=== PATIENT | female | born 1990 | race Caucasian/White ===

== ENCOUNTER 2018-09-21 13:47 | Inpatient (IN) | payer OTHER ==
[~2018-09-21] VITALS: Ht 162.6 cm; Wt 150.0 kg
[2018-09-21 14:34] VITALS: Ht 162.6 cm; Wt 150.0 kg
[2018-09-21 14:35] VITALS: BP 106/64; PULSE 83; RESP 20
[2018-09-21] MEDS ORDERED: PREN1TAB13 PO (14:38)
--- NOTE | 2018-09-21 17:20 | HP ---
Date/Time of Note Date/Time of Note DATE: 09/21/18 TIME: 17:19 OB - History Hx of Present Free Text/Dictation Patient is a 28-year-old morbidly obese with BMI of 56.8 2 para 1 at 35 weeks and 2 days of gestation with estimated date of delivery October 24, 2018 She is a gestational diabetic insulin-dependent and currently takes 40 units of NPH at bedtime daily presents for testing for NST and BPP Patient reports positive movement, she denies any uterine contractions, denies vaginal bleeding or leaking fluid She was seen yesterday for NST and BPP (MIGUEL ANGEL of 6.5 noted yesterday) Estimated Due Date: Oct 24, 2018 : 2 Para: 1 Care: Good Care Obstetrical Complications: Gestational Diabetes (GDMA2) Past Family/Social History * Past Medical, Surgical, Family and Obstetric Histories reviewed from chart. OB Admission Exam Vital Signs Vital Signs Vital Signs Date Temp Pulse Resp B/P (MAP) Pulse Ox O2 O2 Flow FiO2 Time Delivery Rate 09/21/18 97.8 83 20 106/64 Room Air 14:35 (78) Physical Exam HEENT: WNL Heart: Rhythm Normal Lungs: Clear, Equal Abdomen: WNL Extremities: Normal Reflexes: Normal Membranes: Intact Heart Rate: 140's Accelerations: Accelerations Present Decelerations: No Decelerations Varibility: Moderate Contractions on Admission: None Last 72 hourBlood Glucose Bedside Glucose - 72 Hours Test 09/21/18 14:46 Bedside Glucose 87 mg/dL (70-220) PROCEDURE: US OB CLINICAL INDICATION: . Evaluate size and dates. Oligohydramnios in the clinic. Gestational diabetes TECHNIQUE: Multiple transabdominal sonographic images of the pelvis and gravid uterus were obtained. The images were reviewed on a PACS workstation. COMPARISON: 09/20/2018. FINDINGS: The study is limited by the patient's body habitus. Cervix: Not visualized Gestation: Single viable intrauterine gestation. Cardiac activity: 131 beats per minute. Presentation: Transverse oblique, head to the maternal right Placenta: Location: Anterior. Appearance: Grade 1-2 No previa or abruption. Amniotic Fluid: MIGUEL ANGEL = 4.86 cm, oligohydramnios Measurements: BPD = 9.13 cm, 37 weeks 0 days HC = 33.73 cm, 38 weeks 5 days AC = 31.91 cm, 35 weeks 6 days FL = 7.00 cm, 35 weeks 6 days Gestational Age: AUA estimated gestational age: 36 weeks 6 days LMP estimated gestational age: 35 weeks 2 days AUA estimated date of delivery: 10/13/2018 The EFW = 2898 g, 76 %ile based on LMP age. Structures: Anatomic survey is not performed RPTAT:FERNANDOJR IMPRESSION: 1. The study is limited by the patient's body habitus. 2. Single living intrauterine gestation of 36 weeks 6 days by ultrasound criteria. Estimated date of delivery of 10/13/2018. 3. Amniotic fluid index of 4.86 cm is consistent with oligohydramnios, decreased from 6.86 cm on the study of 09/20/2018. 4. Estimated weight 2898 g (6 pounds 6 ounces) Misael Alexandre Physician Date Time Electronically viewed and signed by Misael Alexandre Physician on 09/21/2018 17:05 JR/ CC: FARHAD CROFT MD [id number] PROCEDURE: US OB. CLINICAL INDICATION: Oligohydramnios examination in the clinic. Gestational diabetes TECHNIQUE: Pelvic ultrasound performed for biophysical profile. COMPARISON: Complete obstetrical ultrasound 09/21/2018. 09/20/2018 FINDINGS: The study is limited by the patient's body habitus. Single intrauterine gestation present with heart rate at 123 beats per minute. Presentation is transverse oblique, head to the maternal right. Placenta is anterior, grade II. Biophysical profile score is 8/8 (breathing=2, movement=2, tone =2, fluid volume=0). Amniotic fluid volume is below normal limits, with MIGUEL ANGEL = 4.86 cm, findings confirming oligohydramnios. RPTAT:FERNANDOJR IMPRESSION: Biophysical profile score 6/8 due to oligohydramnios, the amniotic fluid index 4.86 cm, previously 6.86 cm on the study of 09/20/2018. Misael Alexandre Physician Date Time Electronically viewed and signed by Misael Alexandre Physician on 09/21/2018 17:08 JR/ CC: FARHAD CROFT MD [id number] OB Assessment/Plan Reason for admission: other (35 weeks and 2 days of gestation with oligohydramnios) Other plan: Admit to antepartum IV fluids Repeat BPP in a.m. Perinatology consult Copies To: CC: ARIE CLEMONS MD ; FARHAD CROFT MD Sep 21, 2018 17:20
[2018-09-21] MEDS ORDERED: LACTATED RINGER'S 1,000 ML IV SCH ×2 (17:46→18:00)
[2018-09-21] MEDS ORDERED: GLUCOSE GEL 15 GRAM TUBE BUCCAL PRN (18:30)
[2018-09-21] MEDS ORDERED: GLUCAGON 1 MG INJ IM PRN (18:30)
[2018-09-21] MEDS ORDERED: GLUCOSE GEL 15 GRAM TUBE PO PRN ×2 (18:30)
[2018-09-21] MEDS ORDERED: DEXTROSE 50% 50 ML SYRINGE IV PRN ×2 (18:30)
[2018-09-21] MEDS ORDERED: ACCU-CHEK XX SCH (19:35)
[2018-09-21] MEDS ORDERED: NPH, HUMAN INSULIN ISOPHANE 3ML VIAL SC SCH (21:00)
--- NOTE | 2018-09-22 14:53 | DS ---
Date/Time of Note Date/Time of Note DATE: 09/22/18 TIME: 14:50 Obstetrical Discharge Record Final Diagnosis Final Diagnosis: not delivered Other Final Diagnosis IUP at 35 + Weeks GDM on Insulin Morbid Obesity with BMI 57 Oligohydramnios, resolved she was admitted for oligohydramnios. she was given IV and oral hydration. she has repeat normal MIGUEL ANGEL. she has appt for f/u at [facility] office 2x/week Condition on Discharge Physical Assessment Voiding: Yes Bowel Movement: Yes Breast: Soft, non-tender, Filling, Other Abdomen and Incision: soft, obese, gravid, not tender Calf Tenderness: No Patient Condition: Good ARIE CLEMONS MD Sep 22, 2018 14:53
--- NOTE | 2018-09-23 14:11 | NSTRPT ---
NST Information Datetime Report Generated by CPN: 09/23/2018 14:11 Datetime: 09/13/2018 09:48 Electronically Signed By E-Signature: with User ID: [id number]
[2018-10-17] MEDS ORDERED: NPH,100I5 SQ (06:57)
== END 2018-09-22 18:00 | disposition home or self-care (01) | DRG 832 ==
LOC: L-D 13:47 → OBT 13:47 → L-D 17:22
PROVIDERS: ADMIT Specialist; ATTEND Specialist
DX: O24.414 Gestational diabetes mellitus in pregnancy, insulin controlled (principal); O41.03X0 Oligohydramnios, third trimester, not applicable or unspecified; Z68.43 Body mass index [BMI] 50.0-59.9, adult; O99.213 Obesity complicating pregnancy, third trimester; E66.01 Morbid (severe) obesity due to excess calories; Z3A.35 35 weeks gestation of pregnancy
CPT/HCPCS: 76815; 76818; 82962; G0463; J1815; J7120